=== PATIENT | female | born 1955 | race Asian ===

== ENCOUNTER 2020-11-07 09:46 | Emergency (ER) | payer OTHER, MEDICAID ==
[~2020-11-07] VITALS: Ht 162.6 cm; Wt 49.9 kg
[2020-11-07 10:35] VITALS: BP_SYST 151
--- NOTE | 2020-11-07 11:00 | NUR ---
Patient to ER bed Hallway to gown for evaluation. Side rails up.
--- NOTE | 2020-11-07 11:10 | NUR ---
Pt bib daughter to ER with c/o left ankle pain 11/15, s/p mechanical trip and fall. Denies any other trauma at this time. V/S stable, no acute distress noted.
--- NOTE | 2020-11-07 11:15 | NUR ---
JARAD Ritter at bedside examining patient.
--- NOTE | 2020-11-07 12:05 | NUR ---
Patient given written and verbal discharge instructions and verbalizes understanding. ER MD discussed with patient the results and treatment provided. Patient in stable condition. ID arm band removed. No prescriptions given. Patient educated on pain management and to follow up with PMD. Pain Scale 3. Opportunity for questions provided and answered. Medication side effect fact sheet provided.
[2020-11-07 12:06] VITALS: BP_SYST 151
== END 2020-11-07 12:06 | disposition home or self-care (01) ==
LOC: SED 09:46
DX: S82.832A Other fracture of upper and lower end of left fibula, initial encounter for closed fracture (principal); I10 Essential (primary) hypertension; W01.0XXA Fall on same level from slipping, tripping and stumbling without subsequent striking against object, initial encounter; Y93.89 Activity, other specified; Y92.89 Other specified places as the place of occurrence of the external cause; Y99.8 Other external cause status
CPT/HCPCS: 99283